=== PATIENT | male | born 1935 | race Hispanic/Latino ===

== ENCOUNTER 2016-03-31 11:42 | Inpatient (IN) | payer MEDICARE ==
--- NOTE | 2016-03-31 12:09 | Emergency Department Report ---
ED Shortness of Breath HPI - General Chief Complaint: Dyspnea/Respdistress Stated Complaint: JEROME Time Seen by Provider: 03/31/16 11:56 Source: patient, EMS, old records reviewed Mode of arrival: Stretcher Limitations: No Limitations - History of Present Illness Initial Comments: 80-year-old male with a past medical history of previous atrial fibrillation, diabetes, GERD, hypertension, hyperlipidemia, and CAD with stent presents to the hospital etc. onset of shortness of breath this a.m. Contrary to triage patient denies cough and cold symptoms to me. Patient denies cough, fever, chest pain, or fever. Per triage patient had audible crackles throughout with abdominal retractions. Received Solu-Medrol 125 mg, albuterol 5 mg, magnesium 2 mg, and 0.4 nitroglycerin sublingual prior to arrival via EMS. Room air sat EMS 89 percent. Patient denies oxygen use or lung disease. Patient states no longer on Xarelto for A. fib with RVR. PMD: Dr. Villanueva - Related Data Home Medications Medication Instructions Recorded Confirmed Last Taken Fenofibrate [Lofibra] 160 mg PO QDAY 01/27/13 04/06/15 04/06/15 Gabapentin [Neurontin] 300 mg PO DAILY 01/27/13 04/06/15 04/06/15 Glimepiride [Amaryl] 1 mg PO TIDAC 01/27/13 04/06/15 04/06/15 Lisinopril [Zestril TAB] 20 mg PO QDAY 01/27/13 04/06/15 04/06/15 Simvastatin [Zocor TAB] 40 mg PO QHS 01/27/13 04/06/15 04/06/15 metFORMIN [Glucophage] 1,000 mg PO BID 01/27/13 04/06/15 04/06/15 Previous Rx's Medication Instructions Recorded Last Taken Type Cyanocobalamin [Vitamin B-12] 1,000 mcg IM DAILY #10 vial 04/08/15 Unknown Rx Diltiazem [Cardizem] 60 mg PO Q6HR #120 tablet 04/08/15 Unknown Rx Metoprolol [Lopressor TAB] 100 mg PO BID #60 tablet 04/08/15 Unknown Rx Rivaroxaban [Xarelto] 20 mg PO QDAY #30 tablet 04/08/15 Unknown Rx Allergies Allergy/AdvReac Type Severity Reaction Status Date / Time codeine Allergy Rash Verified 01/27/13 06:31 ED Review of Systems ROS: Stated complaint: JEROME Other details as noted in HPI Comment: All other systems reviewed and negative Other: Constitutional: No fevers chills Eyes: No eye pain visual changes ENT: No ear pain or throat pain Neck: Denies pain Respiratory: As per HPI Cardiovascular: Denies chest pain, palpitations, syncope GI: Denies abdominal pain, nausea, vomiting, diarrhea : Denies dysuria, urinary frequency, or urgency Musculoskeletal: Denies back pain Skin: Denies rash, lesions, erythema Neurologic: Denies headache, numbness, weakness Psychiatric: Denies suicidal ideation, hallucinations ED Past Medical Hx - Past Medical History Hx Hypertension: Yes Hx Diabetes: Yes Hx GERD: Yes Hx Asthma: No Hx COPD: No Hx Tuberculosis: No Additional medical history: Hyperlipidemia. Echo 04/07/2015: Mild to moderate LV systolic dysfunction, EF 40-45%, mild to moderate pulmonary hypertension see report for other findings - Surgical History Hx Coronary Stent: Yes Additional Surgical History: l) 2nd toe amp - Social History Smoking Status: Never Smoker Substance Use Type: None - Medications Home Medications: Home Medications Medication Instructions Recorded Confirmed Last Taken Type Fenofibrate [Lofibra] 160 mg PO QDAY 01/27/13 04/06/15 04/06/15 History Gabapentin [Neurontin] 300 mg PO DAILY 01/27/13 04/06/15 04/06/15 History Glimepiride [Amaryl] 1 mg PO TIDAC 01/27/13 04/06/15 04/06/15 History Lisinopril [Zestril TAB] 20 mg PO QDAY 01/27/13 04/06/15 04/06/15 History Simvastatin [Zocor TAB] 40 mg PO QHS 01/27/13 04/06/15 04/06/15 History metFORMIN [Glucophage] 1,000 mg PO BID 01/27/13 04/06/15 04/06/15 History Cyanocobalamin [Vitamin B-12] 1,000 mcg IM DAILY #10 vial 04/08/15 Unknown Rx Diltiazem [Cardizem] 60 mg PO Q6HR #120 tablet 04/08/15 Unknown Rx Metoprolol [Lopressor TAB] 100 mg PO BID #60 tablet 04/08/15 Unknown Rx Rivaroxaban [Xarelto] 20 mg PO QDAY #30 tablet 04/08/15 Unknown Rx ED Physical Exam - General Limitations: No Limitations - Other Other exam information: General: No limitations, patient is alert in no acute distress Head exam: Atraumatic, normocephalic Eyes exam: Normal appearance, pupils equal reactive to light, extraocular movements intact ENT: Moist mucous membrane, normal oropharynx Neck exam: Normal inspection, full range of motion, no meningismus nontender Respiratory exam: Crackles with expiratory wheeze on the right base, no tachypnea or accessory muscle use at this time. Exam after nebulizer treatment and on Ventimask Cardiovascular: Normal rate and rhythm, normal heart sounds Abdomen: Soft, nondistended, and nontender, with normal bowel sounds, no rebound, or guarding Extremity: Full range of motion normal inspection no deformity, no calf tenderness or edema Back: Normal Inspection, full range of motion, no tenderness Neurologic: Alert, oriented x3, cranial nerves intact, no motor or sensory deficit Psychiatric: normal affect, normal mood Skin: Warm, dry, intact ED Course Vital Signs 03/31/16 03/31/16 03/31/16 11:42 11:44 11:45 Pulse Rate 87 86 86 Respiratory 24 29 H 27 H Rate Blood Pressure 152/92 158/90 O2 Sat by Pulse 98 98 97 Oximetry 03/31/16 03/31/16 03/31/16 11:46 11:48 11:50 Pulse Rate 89 85 85 Respiratory 27 H 27 H 28 H Rate Blood Pressure 158/90 158/90 158/90 O2 Sat by Pulse 97 98 98 Oximetry 03/31/16 03/31/16 03/31/16 11:52 11:54 11:56 Pulse Rate 86 83 84 Respiratory 26 H 26 H 26 H Rate Blood Pressure 158/90 158/90 158/90 O2 Sat by Pulse 98 98 98 Oximetry 03/31/16 03/31/16 03/31/16 11:58 12:59 13:00 Pulse Rate 84 83 83 Respiratory 23 24 23 Rate Blood Pressure 158/90 158/90 150/85 O2 Sat by Pulse 98 95 95 Oximetry - Reevaluation(s) Reevaluation #1: 03/31/16 14:03 lasix, o2, asa given in ed ED Medical Decision Making - Lab Data Result diagrams: 03/31/16 12:32 03/31/16 12:32 Lab Results 03/31/16 03/31/16 03/31/16 Range/Units 12:32 12:32 12:32 WBC 7.1 (4.5-11.0) K/mm3 RBC 4.02 (3.65-5.03) M/mm3 Hgb 12.5 (11.8-15.2) gm/dl Hct 37.7 (35.5-45.6) % MCV 94 (84-94) fl MCH 31 (28-32) pg MCHC 33 (32-34) % RDW 14.7 (13.2-15.2) % Plt Count 156 (140-440) K/mm3 Lymph % (Auto) 6.8 L (13.4-35.0) % [place] % (Auto) 3.0 (0.0-7.3) % Eos % (Auto) 0.3 (0.0-4.3) % Baso % (Auto) 0.2 (0.0-1.8) % Lymph # 0.5 L (1.2-5.4) K/mm3 [place] # 0.2 (0.0-0.8) K/mm3 Eos # 0.0 (0.0-0.4) K/mm3 Baso # 0.0 (0.0-0.1) K/mm3 Seg Neutrophils % 89.7 H (40.0-70.0) % Seg Neutrophils # 6.4 (1.8-7.7) K/mm3 PT (12.2-14.9) Sec. INR (0.87-1.13) Sodium 134 L (137-145) mmol/L Potassium 4.8 (3.6-5.0) mmol/L Chloride 96.5 L (98-107) mmol/L Carbon Dioxide 21 L (22-30) mmol/L Anion Gap 21 mmol/L BUN 25 H (9-20) mg/dL Creatinine 1.2 (0.8-1.5) mg/dL Estimated GFR 59 ml/min BUN/Creatinine Ratio 20.83 % Glucose 223 H (75-100) mg/dL Calcium 8.5 (8.4-10.2) mg/dL Magnesium (1.7-2.3) mg/dL Total Creatine Kinase 38 L (55-170) units/L CK-MB (CK-2) 2.6 (0.0-4.0) ng/mL CK-MB (CK-2) Rel Index 6.8 H (0-4) Troponin T < 0.010 (0.00-0.029) ng/mL NT-Pro-B Natriuret Pep 02837 H (0-900) pg/mL 03/31/16 03/31/16 Range/Units 12:32 12:32 WBC (4.5-11.0) K/mm3 RBC (3.65-5.03) M/mm3 Hgb (11.8-15.2) gm/dl Hct (35.5-45.6) % MCV (84-94) fl MCH (28-32) pg MCHC (32-34) % RDW (13.2-15.2) % Plt Count (140-440) K/mm3 Lymph % (Auto) (13.4-35.0) % [place] % (Auto) (0.0-7.3) % Eos % (Auto) (0.0-4.3) % Baso % (Auto) (0.0-1.8) % Lymph # (1.2-5.4) K/mm3 [place] # (0.0-0.8) K/mm3 Eos # (0.0-0.4) K/mm3 Baso # (0.0-0.1) K/mm3 Seg Neutrophils % (40.0-70.0) % Seg Neutrophils # (1.8-7.7) K/mm3 PT 14.6 (12.2-14.9) Sec. INR 1.15 H (0.87-1.13) Sodium (137-145) mmol/L Potassium (3.6-5.0) mmol/L Chloride (98-107) mmol/L Carbon Dioxide (22-30) mmol/L Anion Gap mmol/L BUN (9-20) mg/dL Creatinine (0.8-1.5) mg/dL Estimated GFR ml/min BUN/Creatinine Ratio % Glucose (75-100) mg/dL Calcium (8.4-10.2) mg/dL Magnesium 2.4 H (1.7-2.3) mg/dL Total Creatine Kinase (55-170) units/L CK-MB (CK-2) (0.0-4.0) ng/mL CK-MB (CK-2) Rel Index (0-4) Troponin T (0.00-0.029) ng/mL NT-Pro-B Natriuret Pep (0-900) pg/mL - EKG Data -: EKG Interpreted by Me (sinus rate 86 bilateral TMs inversions) - EKG Data When compared to previous EKG there are: changes noted (04/06/2015 A. fib) - Radiology Data Radiology results: report reviewed Chest x-ray: New left basilar opacification/small pleural effusion and developing interstitial edema - Medical Decision Making Plan to admit the patient to the hospital due to CHF findings and shortness of breath. This is an acute change compared to previous x-rays on record and patient may have decompensating heart function - Differential Diagnosis bronchitis, COPD, CHF, unstable angina, pneumonia Critical Care Time: No Critical care attestation.: If time is entered above; I have spent that time in minutes in the direct care of this critically ill patient, excluding procedure time. ED Disposition Clinical Impression: Pleural effusion, left, Hx of heart artery stent, DM type 2 (diabetes mellitus , type 2), Hypertension Acute CHF Qualifiers: Congestive heart failure type: unspecified congestive heart failure type Qualified Code(s): I50.9 - Heart failure, unspecified Disposition: OP ADMITTED IP TO THIS HOSP Is pt being admited?: Yes Does the pt Need Aspirin: Yes Condition: Stable Time of Disposition: 13:56 (hosp/elizabeth)
--- NOTE | 2016-03-31 12:25 | XRay Report ---
PORTABLE CHEST INDICATION: Shortness of breath. COMPARISON: 04/06/2015 FINDINGS: Portable, frontal chest radiograph again suggests mild cardiomegaly with increased interstitial densities and new left lung base hazy opacity/effusion, now obscuring the left hemidiaphragm. Slight aortic knob calcifications. EKG leads. Demineralized bones. CONCLUSION: Interval radiographic worsening with new left basilar opacity/small pleural effusion and developing interstitial edema, as described. Please correlate. Thank you for the opportunity to participate in this patient's care.
[2016-03-31 12:53] LABS: Basophils % (Auto) 0.2 % (0.0-1.8); Eosinophils % (Auto) 0.3 % (0.0-4.3); Hematocrit 37.7 % (35.5-45.6); Hemoglobin 12.5 gm/dl (11.8-15.2); Mean Corpuscular HGB Conc 33 % (32-34); Mean Corpuscular Hemoglobin 31 pg (28-32); Mean Corpuscular Volume 94 fl (84-94); Platelet Count 156 K/mm3 (140-440); Red Blood Count 4.02 M/mm3 (3.65-5.03); Red Cell Distribution Width 14.7 % (13.2-15.2); White Blood Count 7.1 K/mm3 (4.5-11.0)
[2016-03-31 13:02] LABS: Creatine Kinase MB 2.6 ng/mL (0.0-4.0)
[2016-03-31 13:03] LABS: Anion Gap 21 mmol/L; BUN/Creatinine Ratio 20.83; Blood Urea Nitrogen 25 mg/dL (9-20); Calcium 8.5 mg/dL (8.4-10.2); Carbon Dioxide 21 mmol/L (22-30); Chloride 96.5 mmol/L (98-107); Glucose 223 mg/dL (75-100); Potassium 4.8 mmol/L (3.6-5.0); Sodium 134 mmol/L (137-145)
[2016-03-31 13:04] LABS: INR 1.15 (0.87-1.13)
[2016-03-31] MEDS ORDERED: ASPIRIN PO ONE (13:56)
[2016-03-31] MEDS ORDERED: LASIX IV ONE (14:02)
--- NOTE | 2016-03-31 14:11 | Admit Criteria Form ---
Admission Criteria Documentation: HEART FAILURE: COMMON COMPLICATIONS Clinical Indications for Inpatient Care (Place 'X' for any and all applicable criteria): Ongoing inpatient care may be indicated for heart failure with ANY ONE of the following (1)(2)(3)(4)(5): [ ]I. Ongoing need for care for primary condition requiring frequent therapy adjustments because of changes in cardiac function (eg, drug dosage changes for drugs that are renally metabolized) [ ]II. New-onset heart failure [ ]III. Heart failure with decreased urine output not responsive to attempts to optimize volume status [ ]IV. Acute cardiac ischemia causing or associated with failure [X ]V. Complications of heart failure, including ANY ONE of the following: [ ]a) Pericardial effusion [ X]b) Symptomatic pleural effusion [ ]c) O2 saturation <90% or PO2 < 60 mm Hg (8.0 kPa) on room air or require baseline supplemental O2 [ ]d) Tachypnea [ X]e) Dyspnea [ ]f) Syncope [ ]g) Change in mental status [ ]h) Acute renal insufficiency that is severe (reduction of more than 50% in estimated glomerular filtration rate from baseline) or progressive reduction of more than 25% in estimated glomerular filtration rate from baseline, with creatinine continuing to rise) [ ]i) Hemodynamic instability [ ]j) Anasarca [ ]k) Clinically significant metabolic abnormalities due to heart failure (eg, new-onset metabolic acidosis) Extended stay beyond goal length of stay for primary condition may be needed until ALL of the following are present(1)(3): [ ]a) Stable and effective diuretic regimen established (or patient on stable dialysis regimen if in chronic renal failure) [ ]b) Breathing comfortably at rest [ ]c) Saturation of arterial oxygen greater than 90% or at acceptable baseline [ ]d) Pulmonary edema absent or improved [ ]e) Hemodynamic stability [ ]f) Volume status acceptable on oral medication [ ]g) Peripheral or sacral edema absent or improved [ ]h) Renal function stable and manageable at a lower level of care [ ]i) Complications (eg, pleural effusion) resolved or manageable at a lower level of care [ ]j) Patient or caregiver has received written discharge instructions or educational material addressing activity level, diet, discharge medications, follow-up appointment, weight monitoring, and what to do if symptoms worsen The original [employer] content created by [employer] has been revised. The portions of the content which have been revised are identified through the use of italic text or in bold, and [facility] has neither reviewed nor approved the modified material.All other unmodified content is copyright [facility]. Please see references footnoted in the original [facility] edition 2016 Admission Criteria Met: Yes
--- NOTE | 2016-03-31 18:10 | Event Note ---
Date: 03/31/16 See H/p in reports CHF exacerbation HTN T2DM HLD PN
[2016-03-31] MEDS ORDERED: NON-FORMULARY (Fenofibrate [Lofibra] 160 MG) PO SCH (18:15)
[2016-03-31] MEDS ORDERED: NON-FORMULARY (Glimepiride [Amaryl] 1 MG) PO SCH (22:00)
[2016-03-31] MEDS ORDERED: ZOCOR PO SCH (22:00)
[2016-03-31] MEDS: TRICOR PO SCH (22:05)
[2016-03-31] MEDS: NEURONTIN PO SCH (22:05)
[2016-03-31] MEDS: ZOCOR PO SCH (22:50)
[2016-03-31] MEDS: K-DUR PO SCH (22:50)
[2016-03-31] MEDS: GLUCOPHAGE PO SCH (22:50)
[2016-03-31] MEDS: CARDIZEM PO SCH (22:50)
[2016-03-31] MEDS: LOVENOX SUB-Q SCH (22:50)
[2016-03-31] MEDS: NOVOLOG SUB-Q SCH (23:00)
[2016-03-31] MEDS: LOPRESSOR PO SCH (23:00)
[2016-04-01] MEDS: CARDIZEM PO SCH ×4 (00:25→18:00)
[2016-04-01] MEDS: LASIX IV SCH ×3 (06:55→19:12)
[2016-04-01] MEDS: GLUCOPHAGE PO SCH ×2 (10:00→22:26)
[2016-04-01] MEDS: K-DUR PO SCH (10:00)
[2016-04-01] MEDS: NEURONTIN PO SCH (10:00)
[2016-04-01] MEDS: TRICOR PO SCH (10:00)
--- NOTE | 2016-04-01 10:00 | History and Physical Report ---
CHIEF COMPLAINT: Increasing shortness of breath since morning. HISTORY OF PRESENT ILLNESS: A 80-year-old with multiple medical problems including hypertension, diabetes, atrial fibrillation, hyperlipidemia, gastroesophageal reflux disease, coronary artery disease with stents, comes in for increasing shortness of breath. No cough. Shortness of breath on very minimal exertion and lying down. No fever, no chills. Oxygen at room air was 89%. PAST MEDICAL HISTORY: Significant for hypertension, congestive heart failure, hyperlipidemia, and type 2 diabetes mellitus. PAST SURGICAL HISTORY: Coronary stent and second toe amputation. SOCIAL HISTORY: He does not smoke. No alcohol, no recreational drugs. FAMILY HISTORY: Significant for hypertension. CURRENT MEDICATIONS: Fenofibrate 160 mg daily, gabapentin 100 mg p.o. daily, glimepiride 1 mg p.o. t.i.d., lisinopril or Zestril 20 mg p.o. daily, simvastatin 40 mg p.o. daily, and metformin 1000 mg twice a day. REVIEW OF SYSTEMS: Significant for shortness of breath on minimal exertion and orthopnea. Cough was present but no sputum production. PAST MEDICAL HISTORY: Significant for hypertension, CHF, diabetes, and hyperlipidemia. Echo showed 40% to 45% ejection fraction. REVIEW OF SYSTEMS: As mentioned, has shortness of breath on minimal exertion, no chest pain, no palpitation. No diaphoresis. Otherwise review of systems is essentially negative. A 14-point review of systems done. PHYSICAL EXAMINATION: GENERAL: Elderly male, cooperative during examination, moderate respiratory distress. VITAL SIGNS: Pulse is 87, respirations 24, and sats 98%. HEENT: Unremarkable. Pupils are equal and reactive. NECK: Supple, no lymphadenopathy, no thyromegaly. LUNGS: Clear to auscultation and percussion. Good air entry. Bilateral inspiratory and expiratory crackles and rhonchi present. CARDIOVASCULAR: S1, S2 heard. No gallop, no murmur, no rub. Apical impulse in left fifth intercostal space and midclavicular line. ABDOMEN: Soft and benign. No hepatosplenomegaly. No guarding, no rigidity. Hernial orifices are normal. EXTREMITIES: Good pedal pulses. No pedal edema. CENTRAL NERVOUS SYSTEM: Alert and oriented x 4, nonfocal exam. IMAGING DATA: Chest x-ray shows interval radiographic worsening of the new left basilar opacity/small pleural effusions and developing interstitial edema. LABORATORY DATA: Significant for white count of 7100, H and H are 12.5 and 37.7, platelet count is 156,000. Protime is 14.6. INR is 1.15. Sodium is 134, potassium is 4.8, chloride is 96.5. BUN and creatinine are 25 and 1.2, glucose is 223. BNP is 139,059. EKG shows HR 86 per minute with T-wave inversions. ASSESSMENT AND PLAN: 1. Congestive heart failure exacerbation. The patient is started on Lasix 40 q.12 h., echocardiogram ordered. No Cardiology consultation was ordered at this point. 2. Hypertriglyceridemia. Continue fenofibrate 145 mg p.o. daily. 3. Hypertension. Continue diltiazem and metoprolol 100 b.i.d. 4. BPH. Continue tamsulosin 0.4 mg p.o. daily. 5. Peripheral neuropathy. Continue gabapentin. 6. Type 2 diabetes. Glimepiride was changed from 1 mg 3 times a day to 1 mg twice a day. Three times a day is not required. Also, metformin 1000 mg b.i.d. Check hemoglobin A1c and adjust the medications. I would rather stop the glimepiride if A1c is in the range of 6 because of its tendency to cause persistent hypoglycemia. 7. Deep venous thrombosis prophylaxis, Lovenox 40 mg subcutaneous daily. JOB# [id number] DESTINI/MILY [facility]
[2016-04-01] MEDS: NOVOLOG SUB-Q SCH ×4 (12:18→23:07)
[2016-04-01] MEDS: FLOMAX PO SCH (12:20)
[2016-04-01] MEDS: AMARYL PO SCH ×2 (12:22→17:00)
[2016-04-01] MEDS: LOPRESSOR PO SCH ×2 (12:22→22:26)
--- NOTE | 2016-04-01 18:50 | Progress Note ---
[id number] mellitus type 2. Continue oral Glimepiride. Hypertension. On Metoprolol bid. Hyperlipidemia. Zocor qhs DVT Prophylaxis with Lovenox. Full code status. History Interval history: less shortness of breath, no chest pain Hospitalist Physical - Constitutional Vitals: Temp Pulse Resp BP Pulse Ox 97.8 F 97 H 20 118/56 97 04/01/16 18:02 04/01/16 18:02 04/01/16 18:02 04/01/16 18:02 04/01/16 18:02 General appearance: Present: no acute distress, well-nourished - EENT Eyes: Present: PERRL, EOM intact ENT: hearing intact, clear oral mucosa - Neck Neck: Present: supple, normal ROM - Respiratory Respiratory effort: normal Respiratory: bilateral: rales, negative: rhonchi, wheezing - Cardiovascular Rhythm: regular Heart Sounds: Present: S1 & S2 (S1 and S2 reg, no murmurs) - Extremities Extremities: no ischemia, No edema, normal temperature, normal color - Abdominal General gastrointestinal: soft, non-tender, non-distended, normal bowel sounds - Integumentary Integumentary: Present: clear, warm, dry - Psychiatric Psychiatric: appropriate mood/affect, intact judgment & insight - Neurologic Neurologic: moves all extremities, other (AAO x 3) Results - Labs CBC & Chem 7: 03/31/16 12:32 04/02/16 06:45 Labs: Laboratory Last Values WBC 7.1 K/mm3 (4.5-11.0) 03/31/16 12:32 RBC 4.02 M/mm3 (3.65-5.03) 03/31/16 12:32 Hgb 12.5 gm/dl (11.8-15.2) 03/31/16 12:32 Hct 37.7 % (35.5-45.6) 03/31/16 12:32 MCV 94 fl (84-94) 03/31/16 12:32 MCH 31 pg (28-32) 03/31/16 12:32 MCHC 33 % (32-34) 03/31/16 12:32 RDW 14.7 % (13.2-15.2) 03/31/16 12:32 Plt Count 156 K/mm3 (140-440) 03/31/16 12:32 Lymph % (Auto) 6.8 % (13.4-35.0) L 03/31/16 12:32 [place] % (Auto) 3.0 % (0.0-7.3) 03/31/16 12:32 Eos % (Auto) 0.3 % (0.0-4.3) 03/31/16 12:32 Baso % (Auto) 0.2 % (0.0-1.8) 03/31/16 12:32 Lymph # 0.5 K/mm3 (1.2-5.4) L 03/31/16 12:32 [place] # 0.2 K/mm3 (0.0-0.8) 03/31/16 12:32 Eos # 0.0 K/mm3 (0.0-0.4) 03/31/16 12:32 Baso # 0.0 K/mm3 (0.0-0.1) 03/31/16 12:32 Seg Neutrophils % 89.7 % (40.0-70.0) H 03/31/16 12:32 Seg Neutrophils # 6.4 K/mm3 (1.8-7.7) 03/31/16 12:32 PT 14.6 Sec. (12.2-14.9) 03/31/16 12:32 INR 1.15 (0.87-1.13) H 03/31/16 12:32 Sodium 134 mmol/L (137-145) L 03/31/16 12:32 Potassium 4.8 mmol/L (3.6-5.0) 03/31/16 12:32 Chloride 96.5 mmol/L (98-107) L 03/31/16 12:32 Carbon Dioxide 21 mmol/L (22-30) L 03/31/16 12:32 Anion Gap 21 mmol/L 03/31/16 12:32 BUN 25 mg/dL (9-20) H 03/31/16 12:32 Creatinine 1.2 mg/dL (0.8-1.5) 03/31/16 12:32 Estimated GFR 59 ml/min 03/31/16 12:32 BUN/Creatinine Ratio 20.83 % 03/31/16 12:32 Glucose 223 mg/dL (75-100) H 03/31/16 12:32 POC Glucose 337 (70-105) H 04/01/16 11:53 Hemoglobin A1c 7.1 % (4-6) H 04/01/16 07:05 Calcium 8.5 mg/dL (8.4-10.2) 03/31/16 12:32 Magnesium 2.4 mg/dL (1.7-2.3) H 03/31/16 12:32 Total Creatine Kinase 38 units/L (55-170) L 03/31/16 12:32 CK-MB (CK-2) 2.6 ng/mL (0.0-4.0) 03/31/16 12:32 CK-MB (CK-2) Rel Index 6.8 (0-4) H 03/31/16 12:32 Troponin T < 0.010 ng/mL (0.00-0.029) 03/31/16 12:32 NT-Pro-B Natriuret Pep 32432 pg/mL (0-900) H 03/31/16 12:32
[2016-04-01] MEDS: ZOCOR PO SCH (22:26)
[2016-04-01] MEDS: LOVENOX SUB-Q SCH (22:27)
[2016-04-02] MEDS: CARDIZEM PO SCH ×3 (01:35→11:18)
[2016-04-02] MEDS: LASIX IV SCH (06:10)
[2016-04-02 07:44] LABS: Anion Gap 17 mmol/L; BUN/Creatinine Ratio 33.63; Blood Urea Nitrogen 37 mg/dL (9-20); Carbon Dioxide 25 mmol/L (22-30); Chloride 98.1 mmol/L (98-107); Glucose 137 mg/dL (75-100); Potassium 3.7 mmol/L (3.6-5.0); Sodium 136 mmol/L (137-145)
--- NOTE | 2016-04-02 07:52 | Echocardiography Report ---
Transthoracic Echocardiogram Indication: CHF BP: 148/83 HR: 82 Conclusions *The study is technically limited due to poor acoustic windows. *Severe global hypokinesis of the left ventricle is observed. *The estimated ejection fraction is 20-25%. *The left ventricular diastolic filling pattern is consistent with elevated mean left atrial pressure. *The left atrium is severely dilated. *The right ventricle is slightly dilated. *The right ventricular global systolic function is mildly reduced. *The right atrium is mildly dilated. *There is moderate mitral regurgitation. *There is mild tricuspid regurgitation. *There is evidence of moderate pulmonary hypertension. *There is moderate pulmonic regurgitation. *There is mild dilatation of the ascending aorta. *The inferior vena cava is dilated. Findings Procedure Info: The study quality is fair. The study is technically limited due to poor acoustic windows. Left Ventricle: The left ventricular chamber size is normal. Severe global hypokinesis of the left ventricle is observed. Global left ventricular systolic function is severely decreased. The estimated ejection fraction is 20-25%. The left ventricular diastolic filling pattern is restrictive. The left ventricular diastolic filling pattern is consistent with elevated mean left atrial pressure. Left Atrium: The left atrium is severely dilated. Right Ventricle: The right ventricle wall thickness is normal. The right ventricle is slightly dilated. The right ventricular global systolic function is mildly reduced. Right Atrium: The right atrium is mildly dilated. No pacemaker wire is visualized in the right atrium. Aortic Valve: The aortic valve is not well visualized. There is trace of aortic regurgitation. There is no evidence of aortic stenosis. The peak instantaneous gradient of the aortic valve is 5 mmHg. The aortic valve area, by peak velocities, is calculated at 2.37 cm2. Mitral Valve: There is mitral annular calcification. The mitral valve leaflets are mildly thickened. There is moderate mitral regurgitation. There is no evidence of mitral stenosis. Tricuspid Valve: The tricuspid valve leaflets are normal. There is mild tricuspid regurgitation. There is evidence of moderate pulmonary hypertension. There is no tricuspid stenosis. Pulmonic Valve: The pulmonic valve is not well visualized. There is moderate pulmonic regurgitation. There is no pulmonic stenosis. Pericardium: There is no pericardial effusion. No pleural effusion is present. Aorta: There is mild dilatation of the ascending aorta. Pulmonary Artery: The main pulmonary artery is not well visualized. Venous: The inferior vena cava is dilated. There is less than 50% respiratory change in the inferior vena cava dimension. Measurements Chambers MM Name Value Normal Range IVSd (MM) 0.85 cm (0.6 - 1.1) LVPWd (MM) 1.25 cm (0.6 - 1.1) IVS:LVPW ratio 0.68 ratio - LVIDd (MM) 4.75 cm (3.7 - 5.6) LVIDs (MM) 3.72 cm (2 - 2.8) LV FS (Teichholz) (MM) 21.7 % - LV FS (cube) (MM) 21.7 % - EF Teichholz (MM) 43.9 % - Ao root diameter (MM) 3.7 cm (2 - 3.7) LA dimension (AP) MM 5 cm (1.9 - 4) LA:Ao ratio (MM) 1.35 ratio - Chambers 2D Name Value Normal Range IVSd (2D) 1.13 cm (0.6 - 1.1) LVPWd 1.1 cm - LVPWd (2D) 1.14 cm (0.6 - 1.1) IVS:LVPW ratio (2D) 0.99 ratio - LVIDd 5.3 cm - LVIDs 4.63 cm - LVIDd (2D) 5.26 cm (3.7 - 5.6) LVIDs (2D) 4.63 cm (2 - 3.8) LV FS (Teichholz) (2D) 12 % - LV FS (cube) (2D) 12 % - LV EF (2D) 26 % - EF Teichholz (2D) 25.7 % - LA dimension 4.9 cm - Ao root diameter (2D) 3.1 cm (2 - 3.7) LA dimension (AP) 2D 4.9 cm (1.9 - 4) LA:Ao ratio (2D) 1.58 ratio - Volumes/Mass Name Value Normal Range LV EDV SP 4CH (MOD) 118 ml - LV ESV SP 4CH (MOD) 67 ml - EF SP 4CH (MOD) 43 % - Diastolic/Systolic Function Name Value Normal Range MV E-wave Vmax 1.16 m/sec - MV deceleration time 127 msec - MV A-wave Vmax 0.41 m/sec - MV E:A ratio 2.8 ratio - LV septal e' Vmax 0.05 m/sec - LV lateral e' Vmax 0.07 m/sec - LV E:e' septal ratio 23.8 ratio - LV E:e' lateral ratio 15.7 ratio - Aortic Valve Name Value Normal Range AV Vmax 1.13 m/sec - AV peak gradient 5 mmHg - LVOT diameter 2.1 cm - LVOT Vmax 0.78 m/sec - LVOT peak gradient 2 mmHg - YAZMIN (continuity Vmax) 2.37 cm2 - AR PHT 363 msec - AR peak gradient 47 mmHg - Mitral Valve Name Value Normal Range MR Vmax 4.08 m/sec - MR VTI 149 cm - MR volume (PISA) 76 ml - MR flow (PISA) 208.8 ml/sec - MR ERO 0.51 cm2 - MR PISA radius 0.6 cm - MR alias Vmax 92.4 cm/sec - Tricuspid Valve Name Value Normal Range TR Vmax 3.47 m/sec - TR peak gradient 48 mmHg - RAP 15 mmHg - RVSP 63 mmHg - Pulmonic Valve/Qp:Qs Name Value Normal Range PV Vmax 0.54 m/sec - PV peak gradient 1 mmHg - KY end-diastolic Vmax 1.25 m/sec - PV acceleration time 102 msec -
[2016-04-02] MEDS: LOPRESSOR PO SCH (11:16)
[2016-04-02] MEDS: GLUCOPHAGE PO SCH (11:17)
[2016-04-02] MEDS: TRICOR PO SCH (11:17)
[2016-04-02] MEDS: FLOMAX PO SCH (11:18)
[2016-04-02] MEDS: NEURONTIN PO SCH (11:18)
[2016-04-02] MEDS: AMARYL PO SCH (11:19)
--- NOTE | 2016-04-02 11:26 | Consultation ---
Addendum entered and electronically signed by GIORGIO SOMMER MD 12:01: Patient seen and examined Patient feels significantly better after initial diuresis, he wants to go home and follow-up with his primary trestle mainternance laborer Discussed with him echo findings. LVEF seems to have worsened since Mar 2015. Patient does not want to stay in the hospital for a heart cath and insists on following with his primary trestle mainternance laborer. I have contacted his primary trestle mainternance laborer Dr Lazcano who will work on seeing patient in the [facility]. Patient admits that he has not been taking a diuretic. He also is refusing anticoagulation for his history of paroxysmal atrial fibrillation ECG today is showing SR, inferolateral T wave inversions unchanged from previous ECG done at [facility] in 10/2015 Patient therefore may go home on lasix 40 mg po daily, asa 81 mg po daily, metoprolol, diltiazem, simvastatin and lisinopril 2.5 mg po daily He will be contacted by Dr Lazcano in order to set up a follow-up appointment as outpatient Original Note: History of Present Illness Consult date: 04/02/16 Consult reason: congestive heart failure History of present illness: Patient is a 80yr old male with a history coronary disease and paroxysmal atrial fibrillation. His most recent cardiac workup was done at this hospital a year ago. He had a persantine stress thallium that reports no ischemia, ejection fraction 42%. He presented to the hospital with shortness of breath and admitted for CHF. He denies chest pain and palpitations. He has no His ECG shows a sinus rhythm. No acute ischemic changes. Cardiac consultation requested for CHF. Medications and Allergies Allergies Allergy/AdvReac Type Severity Reaction Status Date / Time codeine Allergy Rash Verified 01/27/13 06:31 Home Medications Medication Instructions Recorded Confirmed Last Taken Type Fenofibrate [Lofibra] 160 mg PO QDAY 01/27/13 03/31/16 03/30/16 History Gabapentin [Neurontin] 300 mg PO DAILY 01/27/13 03/31/16 03/30/16 History Glimepiride [Amaryl] 1 mg PO TIDAC PRN 01/27/13 03/31/16 03/30/16 History Simvastatin [Zocor TAB] 10 mg PO QHS 01/27/13 03/31/16 03/30/16 History metFORMIN [Glucophage] 1,000 mg PO BID 01/27/13 03/31/16 03/30/16 History Diltiazem [Cardizem] 60 mg PO Q6HR #120 tablet 04/08/15 03/31/16 03/30/16 Rx Metoprolol [Lopressor TAB] 100 mg PO BID #60 tablet 04/08/15 03/31/16 03/30/16 Rx Tamsulosin [Flomax] 0.4 mg PO QDAY 03/31/16 03/31/16 Unknown History Active Meds: Active Medications Diltiazem HCl (Cardizem) 60 mg PO Q6HR [facility] Last Admin: 04/02/16 11:18 Dose: 60 mg Enoxaparin Sodium (Lovenox) 40 mg SUB-Q QDAY@2200 [facility] Last Admin: 04/01/16 22:27 Dose: 40 mg Fenofibrate (Tricor) 145 mg PO DAILY [facility] Last Admin: 04/02/16 11:17 Dose: 145 mg Furosemide (Lasix) 40 mg IV 0600,1800 [facility] Last Admin: 04/02/16 06:10 Dose: Not Given Gabapentin (Neurontin) 300 mg PO DAILY [facility] Last Admin: 04/02/16 11:18 Dose: 300 mg Glimepiride (Amaryl) 1 mg PO BIDDIAB [facility] Last Admin: 04/02/16 11:19 Dose: Not Given Insulin Aspart (Novolog) 0 units SUB-Q [facility] PRN Reason: Protocol Last Admin: 04/01/16 23:07 Dose: Not Given Metformin HCl (Glucophage) 1,000 mg PO BID [facility] Last Admin: 04/02/16 11:17 Dose: 1,000 mg Metoprolol Tartrate (Lopressor) 100 mg PO BID [facility] Last Admin: 04/02/16 11:16 Dose: 100 mg Simvastatin (Zocor) 10 mg PO QHS [facility] Last Admin: 04/01/16 22:26 Dose: 10 mg Tamsulosin HCl (Flomax) 0.4 mg PO QDAY [facility] Last Admin: 04/02/16 11:18 Dose: 0.4 mg Physical Examination Vital Signs Pulse Resp Pulse Ox 87 24 98 03/31/16 11:42 03/31/16 11:42 03/31/16 11:42 General appearance: no acute distress HEENT: Positive: PERRL Neck: Positive: trachea midline Cardiac: Positive: Reg Rate and Rhythm Results 03/31/16 12:32 04/02/16 06:45 Comprehensive Metabolic Panel 04/02/16 Range/Units 06:45 Sodium 136 L (137-145) mmol/L Potassium 3.7 D (3.6-5.0) mmol/L Chloride 98.1 (98-107) mmol/L Carbon Dioxide 25 (22-30) mmol/L BUN 37 H (9-20) mg/dL Creatinine 1.1 (0.8-1.5) mg/dL Glucose 137 H (75-100) mg/dL Calcium 8.0 L (8.4-10.2) mg/dL Assessment and Plan CHF exacerbation, systolic EF 20-25% on echo this admission Hx of Paroxysmal Afib Hx of CAD no ischemia on MPI 03/2015 Diabetes Mellitus
[2016-04-02] MEDS ORDERED: TYLENOL PO PRN (11:31)
[2016-04-02 11:40] VITALS: BP 144/78
[2016-04-02] MEDS: NOVOLOG SUB-Q SCH ×3 (12:09→15:16)
--- NOTE | 2016-04-02 13:59 | Discharge Summary ---
Providers - Providers Date of Admission: 03/31/16 14:03 Date of discharge: 04/02/16 Attending physician: SAMINA DUKE 04/01/16 14:45 Consult to Physician [CONS] Routine Consulting Provider: GUSTAVO MYERS Reason For Exam: CHF exacerbation Place consult to:: Dr. Myers Notified:: Nicolette RACHEL Phone number called:: Was contact made?: Yes If yes, spoke with:: In[facility] service Time called:: 18:29 Primary care physician: BAG REPAIRER Hospitalization Condition: Good Disposition: DISCHARGED TO HOME OR SELFCARE - Discharge Diagnoses (1) Acute on chronic systolic (congestive) heart failure Status: Acute (2) DM type 2 (diabetes mellitus, type 2) Status: Chronic (3) Hypertension Status: Chronic (4) Hyperlipidemia Status: Chronic Qualifiers: Hyperlipidemia type: Other hyperlipidemia Qualified Code(s): E78.4 - Other hyperlipidemia (5) CAD (coronary artery disease) Status: Acute Core Measure Documentation - Palliative Care Palliative Care/ Comfort Measures: Not Applicable - Core Measures Any of the following diagnoses?: heart failure - Heart Failure Discharge Requirements REY/ARB for LVSD if EF <40%: Yes Beta reji at discharge: Yes Exam - Constitutional Vitals: Temp Pulse Resp BP Pulse Ox 97.4 F L 86 20 144/78 100 04/02/16 11:30 04/02/16 11:30 04/02/16 11:30 04/02/16 11:30 04/02/16 11:30 Plan Activity: advance as tolerated Diet: low fat, low cholesterol, low salt, diabetic Additional Instructions: 1.Follow up with PCP in 1 week. 2.Follow up with Supervisor Estimator And Drafter in 3-5 days Prescriptions: Furosemide [Lasix TAB] 40 mg PO QDAY #30 tablet Lisinopril [Zestril TAB] 2.5 mg PO QDAY #30 tab
== END 2016-04-02 15:25 | disposition home or self-care (01) | DRG 293 ==
LOC: ED 11:42 → 4A 14:03
PROVIDERS: ADMIT Internal Medicine; ATTEND Internal Medicine
DX: I11.0 Hypertensive heart disease with heart failure (principal); I50.23 Acute on chronic systolic (congestive) heart failure; E11.42 Type 2 diabetes mellitus with diabetic polyneuropathy; K21.9 Gastro-esophageal reflux disease without esophagitis; I25.10 Atherosclerotic heart disease of native coronary artery without angina pectoris; E78.1 Pure hyperglyceridemia; N40.0 Benign prostatic hyperplasia without lower urinary tract symptoms; I27.2 Other secondary pulmonary hypertension; I48.0 Paroxysmal atrial fibrillation; Z95.5 Presence of coronary angioplasty implant and graft; Z89.429 Acquired absence of other toe(s), unspecified side; Z82.49 Family history of ischemic heart disease and other diseases of the circulatory system; Z79.899 Other long term (current) drug therapy; Z88.8 Allergy status to other drugs, medicaments and biological substances; E78.4 Other hyperlipidemia
CPT/HCPCS: 36415; 71010; 80048; 82550; 82553; 82962; 83036; 83735; 83880; 84484; 85025; 85610; 93005; 93010; 93306; 94760; 96374; J1650; J1815; J1940

== ENCOUNTER 2017-04-10 18:49 | Emergency (ER) | payer MEDICARE ==
[~2017-04-10 18:49] MED LIST: AMIDATE IV ONE; QUELICIN ONE; ZEMURON IV ONE
[2017-04-10] MEDS ORDERED: NARCAN 2 MG/2 ML IV ONE (19:04)
--- NOTE | 2017-04-10 19:15 | Emergency Department Report ---
ED Altered Mental Status HPI - General Chief Complaint: Altered Mental Status Stated Complaint: UNRESPONSIVE Time Seen by Provider: 04/10/17 19:07 Source: EMS Mode of arrival: Stretcher Limitations: Altered Mental Status, Physical Limitation - History of Present Illness Initial Comments: This is a 81 y/o male who apparently fell and hit his head last night, and this morning, noted to have changes in his mental status. Per EMS , he was just saying "ok" when they arrived and has deteriorated over time. FSBS by EMS was normal. EMS not aware if he had taken any other medications. He is allergic to codeine. His pupils were sluggish and now pin point and fixed. He has bruising to the left eye. MD Complaint: altered mental status, decreased responsiveness Onset/Timin -: days(s) Severity: severe Consistency of Symptoms: getting worse Context: other (unknown) Associated Symptoms: other (patient cannot respond to commands) - Related Data Home Medications Medication Instructions Recorded Confirmed Last Taken Fenofibrate [Lofibra] 160 mg PO QDAY 01/27/13 03/31/16 03/30/16 Gabapentin [Neurontin] 300 mg PO DAILY 01/27/13 03/31/16 03/30/16 Glimepiride [Amaryl] 1 mg PO TIDAC PRN 01/27/13 03/31/16 03/30/16 Simvastatin [Zocor TAB] 10 mg PO QHS 01/27/13 03/31/16 03/30/16 metFORMIN [Glucophage] 1,000 mg PO BID 01/27/13 03/31/16 03/30/16 Tamsulosin [Flomax] 0.4 mg PO QDAY 03/31/16 03/31/16 Unknown Previous Rx's Medication Instructions Recorded Last Taken Type Diltiazem [Cardizem] 60 mg PO Q6HR #120 tablet 04/08/15 03/30/16 Rx Metoprolol [Lopressor TAB] 100 mg PO BID #60 tablet 04/08/15 03/30/16 Rx Furosemide [Lasix TAB] 40 mg PO QDAY #30 tablet 04/02/16 Unknown Rx Lisinopril [Zestril TAB] 2.5 mg PO QDAY #30 tab 04/02/16 Unknown Rx Allergies Allergy/AdvReac Type Severity Reaction Status Date / Time codeine Allergy Rash Verified 11/02/13 06:31 ED Review of Systems ROS: Stated complaint: UNRESPONSIVE Other details as noted in HPI Comment: Unobtainable due to pts medical conditions ED Past Medical Hx - Past Medical History Hx Hypertension: Yes Hx Congestive Heart Failure: Yes Hx Diabetes: Yes Hx GERD: Yes Hx Asthma: No Hx COPD: No Hx Tuberculosis: No Additional medical history: Hyperlipidemia. Echo 04/07/2015: Mild to moderate LV systolic dysfunction, EF 40-45%, mild to moderate pulmonary hypertension see report for other findings - Surgical History Hx Coronary Stent: Yes Additional Surgical History: l) 2nd toe amp - Social History Smoking Status: Never Smoker - Medications Home Medications: Home Medications Medication Instructions Recorded Confirmed Last Taken Type Fenofibrate [Lofibra] 160 mg PO QDAY 01/27/13 03/31/16 03/30/16 History Gabapentin [Neurontin] 300 mg PO DAILY 01/27/13 03/31/16 03/30/16 History Glimepiride [Amaryl] 1 mg PO TIDAC PRN 01/27/13 03/31/16 03/30/16 History Simvastatin [Zocor TAB] 10 mg PO QHS 01/27/13 03/31/16 03/30/16 History metFORMIN [Glucophage] 1,000 mg PO BID 01/27/13 03/31/16 03/30/16 History Diltiazem [Cardizem] 60 mg PO Q6HR #120 tablet 04/08/15 03/31/16 03/30/16 Rx Metoprolol [Lopressor TAB] 100 mg PO BID #60 tablet 04/08/15 03/31/16 03/30/16 Rx Tamsulosin [Flomax] 0.4 mg PO QDAY 03/31/16 03/31/16 Unknown History Furosemide [Lasix TAB] 40 mg PO QDAY #30 tablet 04/02/16 Unknown Rx Lisinopril [Zestril TAB] 2.5 mg PO QDAY #30 tab 04/02/16 Unknown Rx ED Physical Exam - General Limitations: Altered Mental Status, Physical Limitation General appearance: lethargic - Head Head exam: Present: other (redness to the left orbit, with some abrasions to the left side of the head) - Eye Eye exam: Present: other (pinpoint pupils bilaterally) - ENT ENT exam: Present: normal exam - Neck Neck exam: Present: normal inspection - Respiratory Respiratory exam: Present: normal lung sounds bilaterally - Cardiovascular Cardiovascular Exam: Present: tachycardia, irregular rhythm - GI/Abdominal GI/Abdominal exam: Present: soft - Extremities Exam Extremities exam: Present: normal inspection - Back Exam Back exam: Present: normal inspection - Neurological Exam Neurological exam: Present: altered. Absent: alert, oriented X3 - Psychiatric Psychiatric exam: Present: other (Normally patient is AOx3) - Skin Skin exam: Present: warm, dry, intact - Level of Consciousness 1a. Level of Consciousness: not alert, rep stimuli - LOC Questions 1b. LOC Questions: answers no questions correctly - LOC Command 1c. LOC Commands: performs no tasks correctly ED Course Vital Signs 04/10/17 04/10/17 18:56 19:06 Temperature 98.1 F Pulse Rate 132 H Blood Pressure 129/86 O2 Sat by Pulse 98 Oximetry - Lab Data Lab Results 04/10/17 Range/Units 19:06 POC Glucose 86 (70-105) Critical care attestation.: If time is entered above; I have spent that time in minutes in the direct care of this critically ill patient, excluding procedure time. ED Disposition Condition: Stable Referrals: PRIMARY CARE, [Primary Care Provider] - 3-5 Days
[2017-04-10 19:18] LABS: INR 1.09 (0.87-1.13)
[2017-04-10 19:19] LABS: Partial Thromboplastin Time 33.6 Sec. (24.2-36.6); Thrombin Time 17.3 Sec. (15.1-19.6)
[2017-04-10 19:20] LABS: BUN/Creatinine Ratio 19; Blood Urea Nitrogen 25 mg/dL (9-20); Calcium 8.5 mg/dL (8.4-10.2); Hemolysis Index 29
[2017-04-10 19:46] LABS: Hematocrit 30.9 % (35.5-45.6); Hemoglobin 10.3 gm/dl (11.8-15.2); Mean Corpuscular HGB Conc 34 % (32-34); Mean Corpuscular Hemoglobin 31 pg (28-32); Mean Corpuscular Volume 91 fl (84-94); Platelet Count 158 K/mm3 (140-440); Red Blood Count 3.39 M/mm3 (3.65-5.03); Red Cell Distribution Width 14.1 % (13.2-15.2)
[2017-04-10] MEDS ORDERED: CARDIZEM IV ONE (20:13)
[2017-04-10 20:14] LABS: Albumin 3.4 g/dL (3.9-5); Bilirubin,Direct 0.4 mg/dL (0-0.2)
--- NOTE | 2017-04-10 20:29 | Cat Scan Report ---
FINAL REPORT EXAM: CT HEAD/BRAIN WO CON HISTORY: neuro deficits < 6hrs or sx present upon awakening COMPARISON: None available. TECHNIQUE: Contiguous axial images were obtained. FINDINGS: There is an acute subdural hemorrhage along the left cerebral convexity. This is most pronounced along the anterior margin of the left temporal lobe. At that level hemorrhage measures up to 14 millimeters in thickness. There is moderate underlying volume loss. Subsequently, there is no significant associated mass effect related to the hemorrhage. No midline shift. Trace subdural hemorrhage along the falx anteriorly. No acute intraparenchymal hemorrhage. Moderate volume loss. Mild chronic small vessel ischemic disease. Small chronic appearing lacunar infarcts of the left caudate head and bilateral basal ganglia. Prominence of the cisterna magna versus benign retro cerebellar arachnoid cyst at the posterior margin of the cerebellum. Prominence of the extra-axial CSF space along the right cerebral convexity. Thin chronic subdural hygroma along the right cerebral convexity is not excluded. Prior cataract surgery. Benign senescent scleral calcifications of the ocular globes. Mild mucosal thickening of the paranasal sinuses. Prominent calcification of carotid siphons. Mastoid air cells are clear. IMPRESSION: Acute subdural hematoma along the left cerebral convexity measuring up to 14 millimeters in greatest thickness at the anterior margin of the left temporal lobe. Minimal mass effect focally along the left temporal lobe. No midline shift. Moderate volume loss and mild chronic small vessel ischemic disease. Chronic appearing lacunar infarcts bilateral basal ganglia. No acute intraparenchymal hemorrhage.
--- NOTE | 2017-04-10 20:39 | Cat Scan Report ---
FINAL REPORT EXAM: CT CERVICAL SPINE WO CON HISTORY: fall, ams COMPARISON: CT of the head from the same date. TECHNIQUE: Axial images obtained through the cervical spine. Additional sagittal and coronal reformatted images were obtained. FINDINGS: Levoconvex curvature of the cervical spine. Cervical vertebral body heights are preserved. No acute fracture or traumatic subluxation. Odontoid process, articular pillars and occipital condyles are intact. Moderate severe loss of disc height C3-C4, C4-C5, C7-T1 levels. 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 Mild to moderate canal stenosis and moderate severe foraminal narrowing at the C3-C4 level. Mild canal stenosis C4-C5 level. Mild to moderate canal stenosis C7-T1 level. Partial visualization of large left-sided pleural effusion. Mild calcification bilateral carotid bifurcations. Partial visualization of patient's known left-sided subdural hematoma. IMPRESSION: No acute fracture or subluxation of the cervical spine. Moderate degenerative changes. Levoconvex curvature of the cervical spine which may be positional.
[2017-04-10 20:40] LABS: Amphetamine Screen,Urine PRESUMPTIVE NEGATIVE; Benzodiazepines Screen,Urine PRESUMPTIVE NEGATIVE; Cannabinoid Screen,Urine PRESUMPTIVE NEGATIVE; Cocaine Screen,Urine PRESUMPTIVE NEGATIVE; Methadone Screen,Urine PRESUMPTIVE NEGATIVE; Opiate Screen,Urine PRESUMPTIVE NEGATIVE
[2017-04-10 20:47] LABS: Band Neutrophils # (Manual) 0.1 K/mm3; Basophils % (Manual) 0 % (0.0-1.8); Eosinophils % (Manual) 0 % (0.0-4.3); Total Cells Counted 100
[2017-04-10 20:49] LABS: Ovalocytes 2+
[2017-04-10 20:50] LABS: Hypochromasia 1+
[2017-04-10 20:51] LABS: Platelet Estimate Consistent w Auto; Poikilocytosis 2+
[2017-04-10] MEDS ORDERED: ATIVAN IV ONE (20:51)
[2017-04-10] MEDS ORDERED: TYLENOL PR ONE ×2 (21:05→21:08)
[2017-04-10] MEDS ORDERED: KEPPRA 1,000 MG in NACL 0.9% 100 ML IV ONE ×2 (21:05→22:00)
[2017-04-10] MEDS ORDERED: KEPPRA 1,000 MG/NS 0.75% 100ML 1,000 MG/100 ML BAG IV ONE (21:08)
[2017-04-10] MEDS ORDERED: ZEMURON IV ONE (22:16)
[2017-04-10] MEDS ORDERED: ARTIFICIAL TEARS OPHTH OINT OU PRN (22:18)
[2017-04-10] MEDS ORDERED: VASELINE LIP THERAPY TP PRN (22:18)
[2017-04-10] MEDS ORDERED: DIPRIVAN 10 MG/ML 1,000 MG/100 ML BOTTLE IV ONE (22:20)
[2017-04-10 22:41] VITALS: BP 137/80
[2017-04-10] MEDS ORDERED: NACL 0.9% 1000 ML 1,000 ML ONE (22:42)
--- NOTE | 2017-04-10 22:51 | XRay Report ---
FINAL REPORT EXAM: XR CHEST 1V AP HISTORY: post intubation COMPARISON: None available. FINDINGS: Frontal view(s) of the chest obtained. Heart mildly enlarged. Moderate large left-sided pleural effusion. ETT is present. The distal tip is slightly high in position could be advanced another 5 centimeters. Right lung is clear. No pneumothorax. IMPRESSION: ET tube is high in position at the cervical thoracic junction. This could be advanced another 5 centimeters to be at the level the clavicular heads. Moderate large left-sided layering effusion.
[2017-04-10] MEDS ORDERED: DIPRIVAN 10 MG/ML 1,000 MG/100 ML BOTTLE IV SCH (23:00)
[2017-04-10] MEDS ORDERED: NACL 0.9% 1000 ML 1,000 ML IV ONE (23:05)
== END 2017-04-10 23:01 | disposition other institution (70) ==
LOC: ED 18:49
DX: S00.81XA Abrasion of other part of head, initial encounter (principal); R55 Syncope and collapse; R00.0 Tachycardia, unspecified; R41.82 Altered mental status, unspecified; I10 Essential (primary) hypertension; E11.9 Type 2 diabetes mellitus without complications; K21.9 Gastro-esophageal reflux disease without esophagitis; E78.5 Hyperlipidemia, unspecified; Z88.5 Allergy status to narcotic agent; W18.09XA Striking against other object with subsequent fall, initial encounter; Y93.89 Activity, other specified; Y92.89 Other specified places as the place of occurrence of the external cause; Y99.8 Other external cause status
CPT/HCPCS: 31500; 36415; 70450; 71045; 72125; 80048; 80074; 80307; 82962; 84484; 85007; 85025; 85610; 85670; 85730; 93005; 93010; 96361; 96365; 96375; 99285; G0480; J0330; J1953; J2310; J7030; 80320; 94002; J2704